=== PATIENT | male | born 1965 | race Caucasian/White ===

== ENCOUNTER 2016-09-27 21:54 | Inpatient (IN) | payer OTHER ==
[~2016-09-27] VITALS: Ht 180.3 cm; Wt 71.8 kg
[~2016-09-27 21:54] MED LIST: DILAUDID2 MG PO; FLOMAX0.4 MG PO; ZOFRAN4 MG PO
[2016-09-27 22:29] LABS: HEMATOCRIT 39.1 % (38.0-50.0); MCH 32.3 PG (29.0-34.0); MCHC 33.5 G/DL (30.0-36.0); MCV 96.3 FL (86-99); PLATELET COUNT 233 K/uL (156-360); RBC DIS.WIDTH-CV 12.1 % (11.8-14.6); RBC DIS.WIDTH-SD 43.3 % (39-53); RED BLOOD COUNT 4.06 M/uL (4.00-5.50); WHITE BLOOD COUNT 6.8 K/uL (4.1-10.2)
[2016-09-27 22:43] LABS: CHLORIDE 104 mEq/L (99-109); POTASSIUM 4.4 mEq/L (3.7-5.4); SODIUM 141 mEq/L (136-147)
[2016-09-27 22:45] LABS: GLUCOSE 82 mg/dL (70-99)
[2016-09-27 22:47] LABS: ANION GAP 9 MEQ/L (2-14)
[2016-09-27 22:48] LABS: SERUM ETHYL ALCOHOL < 10 mg/dL
[2016-09-27 22:49] LABS: GFR ESTIMATE (CALCULATED) > 59 mL/min/
[2016-09-27 22:50] LABS: UREA NITROGEN (BUN) 29 mg/dL (9-23)
[2016-09-28 00:05] LABS: ADD MEDTOX COMMENT Y; AMPHETAMINE NEGATIVE (500 ng/mL); BARBITURATES NEGATIVE (200 ng/mL); BENZODIAZEPINES PRESUMPTIVE POSITIVE (150 ng/mL); COCAINE NEGATIVE (150 ng/mL); INTERNAL CONTROLS VALID? YES; METHADONE NEGATIVE (200 ng/mL); METHAMPHETAMINE NEGATIVE (500 ng/mL); OPIATES (MORPHINE) NEGATIVE (100 ng/mL); OXYCODONE NEGATIVE (100 ng/mL); PHENCYCLIDINE NEGATIVE (25 ng/mL); PROPOXYPHENE NEGATIVE (300 ng/mL); THC CANNABINOIDS PRESUMPTIVE POSITIVE (50 ng/mL); TRICYCLIC ANTIDEPRESSANTS NEGATIVE (300 ng/mL)
[2016-09-28] MEDS ORDERED: PSEUDOEPHEDRINE30 MG PO (01:39)
[2016-09-28] MEDS ORDERED: DEPAKOTE500 MG PO ×3 (01:39)
[2016-09-28] MEDS ORDERED: RITALIN10 MG PO (01:39)
[2016-09-28] MEDS ORDERED: PROPRANOLOL HCL20 MG PO (01:40)
[2016-09-28] MEDS ORDERED: LEVAQUIN750 MG PO (01:40)
[2016-09-28] MEDS ORDERED: ZYRTEC10 M3 PO (01:40)
[2016-09-28] MEDS ORDERED: ADVIL,NUPRIN,M200 MG PO (01:40)
[2016-09-28] MEDS ORDERED: GABAPENTIN800 MG PO (01:41)
[2016-09-28] MEDS ORDERED: WELLBUTRIN XL300 MG PO (01:41)
[2016-09-28] MEDS ORDERED: CONCERTA54 MG PO (01:41)
[2016-09-28] MEDS ORDERED: DILAUDID4 MG PO (01:41)
[2016-09-28] MEDS ORDERED: MS CONTIN,ORAMO15 M1 PO (01:42)
[2016-09-28] MEDS ORDERED: UROXATRAL10 MG PO (01:42)
[2016-09-28] MEDS ORDERED: TIZANIDINE HCL6 MG PO (01:42)
[2016-09-28] MEDS ORDERED: TEMAZEPAM15 MG PO (01:42)
[2016-09-28] MEDS ORDERED: LIDODERM 5% P1 PATCH TD (01:42)
[2016-09-28] MEDS ORDERED: TRAZODONE HCL50 MG PO (01:43)
[2016-09-28 03:29] LABS: BENZODIAZEPINES QUANT VALUE 0 NG/ML; BENZODIAZEPINES, URINE SCREEN Negative (200 ng/mL)
[2016-09-28 05:28] VITALS: BP 169/85
[2016-09-28 07:57] VITALS: BP 116/66
[2016-09-28 16:14] VITALS: BP 124/65
[2016-09-29 08:06] VITALS: BP 121/64
[2016-09-29 15:29] VITALS: BP 154/95
[2016-09-29 18:14] VITALS: BP 172/100
[2016-09-29 18:15] VITALS: BP 174/92
[2016-09-30 08:23] VITALS: BP 125/89
[2016-09-30] MEDS ORDERED: LEVAQUIN750 MG PO (12:11)
[2016-09-30] MEDS ORDERED: HYDROXYZINE PAM50 MG PO (12:11)
[2016-09-30 15:21] VITALS: BP 159/93
== END 2016-09-30 16:08 | disposition home or self-care (01) | DRG 885 ==
LOC: EME 21:54 → EDOF 09-28 03:35 → 1WEST 09-28 03:35
PROVIDERS: Emergency Medicine
DX: F33.2 Major depressive disorder, recurrent severe without psychotic features (principal); R45.851 Suicidal ideations; F17.200 Nicotine dependence, unspecified, uncomplicated; G89.29 Other chronic pain; F41.3 Other mixed anxiety disorders; F12.90 Cannabis use, unspecified, uncomplicated
CPT/HCPCS: 71020; 80048; 80164; 84999; 85027; 90837; G0480; Q0177